=== PATIENT | male | born 1975 | race Caucasian/White ===

== ENCOUNTER 2020-02-09 08:50 | Inpatient (IN) ==
[2020-02-09] MEDS ORDERED: methylPREDNISolone SOD SUCC 125 MG/2 ML VIAL IV ONE (09:15)
[2020-02-09] MEDS ORDERED: ALBUTEROL SULFATE 200 PUFF INHALER INH ONE (09:15)
[2020-02-09] MEDS ORDERED: 0.9 % SODIUM CHLORIDE 2,000 ML IV ONE (09:15)
[2020-02-09] MEDS ORDERED: ONDANSETRON 4 MG/2 ML VIAL IV ONE (09:20)
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
[2020-02-09 09:50] LABS: POC Blood Urea Nitrogen 19 mg/dL (6-20); POC CO2 28 mmol/L (22-30); POC Calcium, Ionized 1.02 mmEq/L (1.16-1.32); POC Chloride 99 mEq/L (96-108); POC Creatinine 1.1 mg/dL (0.6-1.2); POC Glucose, Random 148 mg/dL (70-105); POC Hematocrit 42 % (41-55); POC Potassium 3.7 mEql/L (3.3-5.1); POC Sodium 137 mEq/L (133-145)
[2020-02-09 10:03] LABS: Basophils # (Auto) 0.01 K/mcL (0.00-0.20); Basophils % (Auto) 0.1 % (0.0-2.0); Eosinophils # (Auto) 0 K/mcL (0.00-0.70); Eosinophils % (Auto) 0 % (0.0-7.0); Hematocrit 43.1 % (41.0-55.0); Hemoglobin 14.5 g/dL (13.5-16.5); Lymphocytes # (Auto) 0.83 K/mcL (1.50-4.80); Lymphocytes % (Auto) 10.5 % (15.0-49.0); Mean Cell Volume 87.2 fL (80.0-100.0); Mean Corpuscular HGB Conc 33.6 g/dL (31.0-36.0); Mean Platelet Volume 9.3 fL (7.4-10.4); Monocytes % (Auto) 2.5 % (1.0-12.0); Neutrophils % (Auto) 86.9 % (38.0-78.0); Platelet Count 161 K/mcL (140-440); RBC 4.94 M/mcL (4.50-5.90); Red Cell Distribution Width 12.2 % (11.5-14.5); WBC 7.9 K/mcL (4.5-11.0)
--- NOTE | 2020-02-09 10:13 | XRay Report ---
HISTORY: Or breath, patient's has Covid infection FINDINGS: There are mild generalized alveolar infiltrates throughout both lungs. Lung volumes are normal. There is no lobar consolidation or pleural effusion. The heart size is normal. IMPRESSION: Mild bilateral pneumonia Interpreted and Authenticated by: Gilbert Deluna 02/09/20
[2020-02-09] MEDS ORDERED: REMDESIVIR 200 MG in 0.9 % SODIUM CHLORIDE 250 ML IV ONE ×2 (11:10→11:34)
[2020-02-09] MEDS ORDERED: REMDESIVIR 100 MG in 0.9 % SODIUM CHLORIDE 250 ML IV SCH (11:15)
[2020-02-09] MEDS ORDERED: ACETAMINOPHEN 650 MG/65 ML BOTTLE IV PRN (12:17)
[2020-02-09] MEDS ORDERED: METOPROLOL TARTRATE 5 MG/5 ML VIAL IV PRN (12:17)
[2020-02-09] MEDS ORDERED: POTASSIUM CHLORIDE 20 MEQ PACKET PO PRN (12:17)
[2020-02-09] MEDS ORDERED: CALCIUM CHLORIDE 1,000 MG/10 ML SYRINGE IV PRN (12:17)
[2020-02-09] MEDS ORDERED: POLYETHYLENE GLYCOL 3350 17 GM PACKET PO PRN (12:17)
[2020-02-09] MEDS ORDERED: AZITHROMYCIN 500 MG in DEXTROSE 5% IN WATER 250 ML IV SCH (12:17)
[2020-02-09] MEDS ORDERED: POTASSIUM CHLORIDE 40 MEQ in DEXTROSE 5% IN WATER 500 ML IV PRN (12:17)
[2020-02-09] MEDS ORDERED: ONDANSETRON 4 MG/2 ML VIAL IV PRN (12:17)
[2020-02-09] MEDS ORDERED: BISACODYL 10 MG SUPP.RECT PR PRN (12:17)
[2020-02-09] MEDS ORDERED: MAGNESIUM SULFATE 2 GM/50 ML BAG IV PRN (12:17)
[2020-02-09] MEDS ORDERED: ONDANSETRON 4 MG ODT TABLET SL PRN (12:17)
[2020-02-09] MEDS: cefTRIAXone 2 GM in DEXTROSE 5% IN WATER 50 ML IV SCH (13:44)
[2020-02-09] MEDS: buPROPion 150 MG TAB.XL.24H PO SCH (13:46)
[2020-02-09] MEDS: 0.9 % SODIUM CHLORIDE 10 ML SYRINGE IV SCH ×2 (14:07→20:30)
[2020-02-09] MEDS: AZITHROMYCIN 500 MG in DEXTROSE 5% IN WATER 250 ML IV SCH (14:37)
[2020-02-09] MEDS: 0.9 % SODIUM CHLORIDE 1,000 ML IV SCH (14:39)
[2020-02-09] MEDS: RIVAROXABAN 20 MG TABLET PO SCH (17:23)
[2020-02-09] MEDS: BUDESONIDE 1 PUFF INHALER INH SCH (19:53)
[2020-02-09] MEDS: SENNOSIDES/DOCUSATE SODIUM 1 TAB TABLET PO SCH (20:04)
[2020-02-09] MEDS: DOCUSATE SODIUM 100 MG CAPSULE PO SCH (20:04)
[2020-02-09] MEDS: LORazepam 0.5 MG TABLET PO PRN (22:49)
[2020-02-09] MEDS ORDERED: LORazepam 0.5 MG TABLET ONE (22:55)
[2020-02-09] MEDS: ACETAMINOPHEN 325 MG TABLET PO PRN (23:47)
[2020-02-10] MEDS: 0.9 % SODIUM CHLORIDE 10 ML SYRINGE IV SCH ×3 (05:05→22:00)
[2020-02-10 06:45] LABS: Basophils # (Auto) 0.01 K/mcL (0.00-0.20); Basophils % (Auto) 0.1 % (0.0-2.0); Eosinophils # (Auto) 0 K/mcL (0.00-0.70); Eosinophils % (Auto) 0 % (0.0-7.0); Hemoglobin 13.1 g/dL (13.5-16.5); Lymphocytes # (Auto) 0.93 K/mcL (1.50-4.80); Lymphocytes % (Auto) 11.1 % (15.0-49.0); Mean Cell Volume 88.5 fL (80.0-100.0); Mean Corpuscular HGB Conc 32.8 g/dL (31.0-36.0); Mean Platelet Volume 9.7 fL (7.4-10.4); Monocytes # (Auto) 0.45 K/mcL (0.10-0.90); Monocytes % (Auto) 5.4 % (1.0-12.0); Neutrophils % (Auto) 83.4 % (38.0-78.0); Platelet Count 198 K/mcL (140-440); RBC 4.52 M/mcL (4.50-5.90); Red Cell Distribution Width 12.1 % (11.5-14.5); WBC 8.4 K/mcL (4.5-11.0)
[2020-02-10 07:13] LABS: ALT/SGPT 39 U/L (<40); AST/SGOT 38 U/L (<40); Albumin 3.2 gm/dL (3.2-5.2); Albumin/Globulin Ratio 1.1 (1.0-2.3); Alkaline Phosphatase 55 U/L (39-117); Bilirubin,Direct < 0.2 mg/dL (<0.3); Bilirubin,Total 0.2 mg/dL (0.1-1.0); Blood Urea Nitrogen 13 mg/dL (6-20); Calcium 8.4 mg/dL (8.6-10.4); Carbon Dioxide 26 mmol/L (22-30); Chloride 103 mmol/L (96-108); Globulin 2.9 gm/dL (2.2-3.7); Glomerular Filtration Rate 110; Glucose 135 mg/dL (70-105); Lactate Dehydrogenase 444 U/L (135-225); Phosphorous 3.3 mg/dL (2.5-4.5); Triglycerides 83 mg/dL (<150); Uric Acid 3.7 mg/dL (2.5-8.0)
[2020-02-10 07:23] LABS: Ferritin 817.7 ng/mL (30.0-400.0)
[2020-02-10] MEDS: buPROPion 150 MG TAB.XL.24H PO SCH (08:15)
[2020-02-10] MEDS: DOCUSATE SODIUM 100 MG CAPSULE PO SCH ×3 (08:15→20:56)
[2020-02-10] MEDS: DEXAMETHASONE 4 MG TABLET PO SCH (08:15)
[2020-02-10] MEDS: MULTIVIT,THER IRON,CA,FA & MIN 1 TABLET PO SCH (08:15)
[2020-02-10] MEDS: cefTRIAXone 2 GM in DEXTROSE 5% IN WATER 50 ML IV SCH (08:16)
[2020-02-10] MEDS: TIOTROPIUM BROMIDE 18 MCG INHALANT INH SCH (08:16)
[2020-02-10] MEDS: BUDESONIDE 1 PUFF INHALER INH SCH ×2 (08:17→21:00)
[2020-02-10] MEDS ORDERED: DEXAMETHASONE 4 MG TABLET PO SCH (09:00)
[2020-02-10] MEDS: LORazepam 0.5 MG TABLET PO PRN ×3 (09:01→19:51)
[2020-02-10] MEDS: AZITHROMYCIN 500 MG in DEXTROSE 5% IN WATER 250 ML IV SCH (10:48)
[2020-02-10] MEDS: 0.9 % SODIUM CHLORIDE 1,000 ML IV SCH (10:48)
[2020-02-10] MEDS ORDERED: REMDESIVIR 100 MG in 0.9 % SODIUM CHLORIDE 250 ML IV SCH (11:15)
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
--- NOTE | 2020-02-10 11:26 | Internal Med Progress Note ---
SUBJECTIVE Subjective Patient information: Note initiated : 02/10/20 at 11:22 am Service Date, if different from initiated Date: [] Patient: Gerry Myers a 44 y/o M admitted on 02/09/20 for shortness of breath, covid positive. Chief Complaint: History of present illness: Mr. Myers is a 44 year old M with a history of DVT/PE with long-term anticoagulant use/anxiety disorder who presents to the ER with over a week onset of worsening upper respiratory symptoms that started with cough/weakness malaise and fever that has progressed with increasing difficulty breathing along with loss of appetite/generalized body ache and malaise. He presents to the ER with concerns of Covid. Initial work-up was consistent with bilateral pneumonia/severe hypoxic respiratory failure requiring 4 L oxygen in the ER. Patient was started on dexamethasone/remdesivir along with antibiotic coverage. Subsequently hospitalist service was consulted. At the time of my evaluation patient is extremely anxious. Unable to talk in full sentences. Tachycardic at 115/tachypneic at 40. Review of blood gas and chest imaging was consistent with Covid acute viral syndrome and pneumonia pattern. Patient was able to endorse history as above. Denies dysuria, rash, joint swelling or pain 02/09-patient currently on noninvasive mechanical ventilation due to worsening ABGs. pH 7.4 8/35/57 on 10 L oxygen. Overnight continue to deteriorate. On remdesivir/dexamethasone day 2. Maintain COVID-19 questions. White count 8.4/D-dimer 0.52/ferritin 817/CRP 10.2. [place] 2 score 17. Very high risk mortality. Continue ICU care/noninvasive mechanical ventilation. Low threshold for transfer to tertiary center if continues to deteriorate despite aggressive treatment. Constitutional Vitals: Vital Signs Temp Pulse Resp BP Pulse Ox 97.9 F 77 22 133/77 97 02/10/20 08:01 02/10/20 11:08 02/10/20 11:08 02/10/20 10:01 02/10/20 11:08 Period Temp Pulse Resp BP Sys/Sandoval Pulse Ox Last 24 Hr 97.4 F-102.0 F 71-107 16-34 118-146/75-107 88-97 Intake and Output 02/09/20 02/10/20 02/10/20 21:59 05:59 13:59 Intake Total 135 512 2756 Output Total 700 550 Balance -400 960 500 Weight 120.837 kg very anxious Labored breathing on 10 L oxygen transition to noninvasive mechanical ventilation No lymphedema Nondistended abdomen Intake & Output: Intake & Output 02/09/20 02/10/20 02/10/20 21:59 05:59 13:59 Intake Total 597 179 1020 Output Total 700 550 Balance -400 960 500 Weight 120.837 kg Intake: IV 300 1050 Sodium Chloride 0.9% 1,000 ml @ 1000 50 mls/hr IV .Q20H [facility] Rx#: [id number] Zithromax 500 mg In Dextrose 5% 250 in Water 250 ml @ 250 mls/hr IV Q24H [facility] Rx#:[id number] Rocephin 2 gm In Dextrose 5% in 50 50 Water 50 ml @ 100 mls/hr IV Q24H [facility] Rx#:[id number] Oral 960 Output: Void Amount 700 550 Other: Urine Appearance Clear Urine Color Bright Yellow Straw Urine Odor Normal OBJ DATA Labs CBC & Chem 7: 02/10/20 05:18 02/10/20 05:18 Labs: Abnormal Lab Results 02/10/20 02/10/20 02/10/20 05:18 05:18 05:18 Hgb 13.1 L Hct 40.0 L Neut % (Auto) 83.4 H Lymph % (Auto) 11.1 L Lymph # (Auto) 0.93 L D-Dimer 0.52 H Glucose 135 H POC Glucose Calcium 8.4 L POC WB Ioniz Calcium Ferritin 817.7 H GGT 82 H Lactate Dehydrogenase 444 H C-Reactive Protein 10.20 H Procalcitonin 02/10/20 02/09/20 02/09/20 05:18 09:29 09:29 Hgb Hct Neut % (Auto) Lymph % (Auto) Lymph # (Auto) D-Dimer Glucose POC Glucose 148 H Calcium POC WB Ioniz Calcium 1.02 L Ferritin GGT Lactate Dehydrogenase C-Reactive Protein Procalcitonin 0.45 H 0.59 H 02/09/20 09:29 Hgb Hct Neut % (Auto) 86.9 H Lymph % (Auto) 10.5 L Lymph # (Auto) 0.83 L D-Dimer Glucose POC Glucose Calcium POC WB Ioniz Calcium Ferritin GGT Lactate Dehydrogenase C-Reactive Protein Procalcitonin Meds: Medications Acetaminophen (Tylenol) 650 mg PO Q4-6HP PRN; Protocol PRN Reason: Per Pain Protocol/Fever > 101 Last Admin: 02/09/20 23:47 Dose: 650 mg Documented by: Bisacodyl (Dulcolax) 10 mg ID Q2-3DAYS PRN PRN Reason: Constipation Budesonide (Pulmicort) 2 puff INH BID [facility] Last Admin: 02/10/20 08:17 Dose: Not Given Documented by: Bupropion HCl (Wellbutrin Xl) 300 mg PO DAILY [facility] Last Admin: 02/10/20 08:15 Dose: 300 mg Documented by: Calcium Chloride (Calcium Chloride) 1,000 mg IV ONCE PRN PRN Reason: CA+ = or < 7.8 Stop: 02/10/20 12:00 Dexamethasone (Decadron) 6 mg PO DAILY [facility] Last Admin: 02/10/20 08:15 Dose: 6 mg Documented by: Docusate Sodium (Colace) 100 mg PO BID [facility] Last Admin: 02/10/20 09:02 Dose: Not Given Documented by: Potassium Chloride 40 meq/ (Dextrose) 520 mls @ 130 mls/hr IV UD PRN PRN Reason: K+ = or < 3.5 Acetaminophen (Ofirmev) 650 mg in 65 mls @ 130 mls/hr IV Q6HP PRN; Protocol PRN Reason: Per Pain Protocol/Fever > 101 Magnesium Sulfate (Magnesium Sulfate) 2 gm in 50 mls @ 50 mls/hr IV UD PRN PRN Reason: MG = or < 1.7 Sodium Chloride (Sodium Chloride 0.9%) 1,000 mls @ 50 mls/hr IV .Q20H [facility] Stop: 02/12/20 00:16 Last Admin: 02/10/20 10:48 Dose: 50 mls/hr Documented by: Ceftriaxone Sodium 2 gm/ (Dextrose) 50 mls @ 100 mls/hr IV Q24H [facility]; Protocol Last Infusion: 02/10/20 08:50 Dose: Infused Documented by: REMDESIVIR 100 mg/ Sodium (Chloride) 250 mls @ 250 mls/hr IV Q24H [facility] Stop: 02/13/20 11:59 Azithromycin 500 mg/ Dextrose 250 mls @ 250 mls/hr IV Q24H [facility]; Protocol Stop: 02/11/20 15:59 Last Admin: 02/10/20 10:48 Dose: 250 mls/hr Documented by: Iron Carb/Multivit/[place]/Folic Acid (Multivitamin W/Minerals) 1 tab PO DAILY [facility] Last Admin: 02/10/20 08:15 Dose: 1 tab Documented by: Lorazepam (Ativan) 0.5 mg PO Q4HP PRN PRN Reason: ANXIETY/SEDATION Last Admin: 02/10/20 09:01 Dose: 0.5 mg Documented by: Melatonin (Melatonin 3mg Tablet) 3 mg PO HSP PRN PRN Reason: Insomnia Metoprolol Tartrate (Lopressor) 5 mg IV Q5M PRN PRN Reason: Heart Rate > 140 bpm Ondansetron HCl (Zofran Odt) 4 mg SL Q4-6HP PRN; Protocol PRN Reason: Nausea And Vomiting Ondansetron HCl (Zofran) 4 mg IV Q4-6HP PRN; Protocol PRN Reason: Nausea And Vomiting Last Admin: 02/09/20 20:03 Dose: 4 mg Documented by: Polyethylene Glycol (Miralax) 17 gm PO DAILYP PRN PRN Reason: Constipation Potassium Chloride (Klor-Con) 40 meq PO DAILYP PRN PRN Reason: K+ < 3.5 Rivaroxaban (Xarelto) 20 mg PO QPMCC [facility] Last Admin: 02/09/20 17:23 Dose: 20 mg Documented by: Senna/Docusate Sodium (Senna Plus Tablet) 1 tab PO HS [facility] Last Admin: 02/09/20 20:04 Dose: 1 tab Documented by: Sodium Chloride (Saline Flush) 10 ml IV Q8 [facility] Last Admin: 02/10/20 05:05 Dose: Not Given Documented by: Tiotropium [place] (Spiriva) 18 mcg INH DAILY [facility] Last Admin: 02/10/20 08:16 Dose: 1 puff Documented by: A/P Narrative A/P Narrative: * COVID-19 pneumonia-clinical deterioration noted. Continue noninvasive mechanical ventilation. On 55% FiO2, continue day 2 remdesivir/dexamethasone, thrombosis prophylaxis/stable coag inflammatory markers, maintain COVID-19 precautions * Acute hypoxic respiratory failure secondary to Covid pneumonia. Worsening now requiring noninvasive mechanical ventilation. Follow with serial chest imaging/blood gas and vent titration * History of DVT on anticoagulation * Anxiety disorder continue bupropion/as needed benzodiazepine * Full code Plan * Continue noninvasive mechanical ventilation * Serial imaging/ABG/follow coag inflammatory markers * Continue remdesivir/dexamethasone/empiric antibiotics/thrombosis prophylaxis * Pre-existing medical condition management home meds * Continue directed therapies/nutrition support/early mobilization * Transfer to tertiary center if worsening Critical care time spent on management of hypoxic respiratory failure/noninvasive mechanical ventilation/review of blood gas imaging and labs in excess of 35 minutes Time Spent With Patient Time: Total time spent is greater than 50% in coordination of care (as documented) at patient's floor/unit and/or counseling patient:
[2020-02-10] MEDS: REMDESIVIR 100 MG in 0.9 % SODIUM CHLORIDE 250 ML IV SCH (11:55)
[2020-02-10] MEDS: RIVAROXABAN 20 MG TABLET PO SCH (17:08)
[2020-02-10] MEDS: ACETAMINOPHEN 325 MG TABLET PO PRN (20:56)
[2020-02-10] MEDS: MELATONIN 3 MG TABLET PO PRN (20:56)
[2020-02-10] MEDS: SENNOSIDES/DOCUSATE SODIUM 1 TAB TABLET PO SCH (20:56)
[2020-02-11] MEDS: ACETAMINOPHEN 325 MG TABLET PO PRN ×3 (05:40→17:14)
[2020-02-11] MEDS: LORazepam 0.5 MG TABLET PO PRN ×3 (05:40→17:14)
[2020-02-11] MEDS: 0.9 % SODIUM CHLORIDE 10 ML SYRINGE IV SCH ×3 (06:03→21:40)
[2020-02-11 06:59] LABS: Basophils # (Auto) 0.01 K/mcL (0.00-0.20); Basophils % (Auto) 0.1 % (0.0-2.0); Eosinophils # (Auto) 0 K/mcL (0.00-0.70); Eosinophils % (Auto) 0 % (0.0-7.0); Hematocrit 41.3 % (41.0-55.0); Hemoglobin 13.4 g/dL (13.5-16.5); Lymphocytes # (Auto) 1.08 K/mcL (1.50-4.80); Mean Cell Volume 89.8 fL (80.0-100.0); Mean Corpuscular HGB Conc 32.4 g/dL (31.0-36.0); Mean Platelet Volume 9.9 fL (7.4-10.4); Monocytes % (Auto) 5.6 % (1.0-12.0); Neutrophils % (Auto) 84.3 % (38.0-78.0); Platelet Count 224 K/mcL (140-440); Red Cell Distribution Width 12.2 % (11.5-14.5); WBC 10.8 K/mcL (4.5-11.0)
[2020-02-11] MEDS: 0.9 % SODIUM CHLORIDE 1,000 ML IV SCH (08:01)
[2020-02-11 08:32] LABS: ALT/SGPT 76 U/L (<40); AST/SGOT 64 U/L (<40); Albumin 3.1 gm/dL (3.2-5.2); Albumin/Globulin Ratio 1.1 (1.0-2.3); Alkaline Phosphatase 52 U/L (39-117); Bilirubin,Direct < 0.2 mg/dL (<0.3); Bilirubin,Total 0.2 mg/dL (0.1-1.0); Blood Urea Nitrogen 19 mg/dL (6-20); Calcium 8.7 mg/dL (8.6-10.4); Carbon Dioxide 25 mmol/L (22-30); Chloride 105 mmol/L (96-108); Globulin 2.8 gm/dL (2.2-3.7); Glomerular Filtration Rate 110; Glucose 129 mg/dL (70-105); Lactate Dehydrogenase 454 U/L (135-225); Phosphorous 3.8 mg/dL (2.5-4.5); Triglycerides 104 mg/dL (<150); Uric Acid 4.3 mg/dL (2.5-8.0)
--- NOTE | 2020-02-11 08:54 | XRay Report ---
HISTORY: Follow-up Covid pneumonia FINDINGS: Moderate bilateral pneumonia is present throughout both lungs. There is a thick band of discoid atelectasis developing along the left upper heart border. The pneumonia has become worse since 02/09/20. No pleural effusion is present. The heart size remains normal. IMPRESSION: Worsening bilateral pneumonia Interpreted and Authenticated by: Gilbert Deluna 02/11/20
[2020-02-11] MEDS: BUDESONIDE 1 PUFF INHALER INH SCH (09:23)
[2020-02-11] MEDS: DOCUSATE SODIUM 100 MG CAPSULE PO SCH ×2 (10:18→21:40)
[2020-02-11] MEDS: DEXAMETHASONE 4 MG TABLET PO SCH (10:27)
[2020-02-11] MEDS: cefTRIAXone 2 GM in DEXTROSE 5% IN WATER 50 ML IV SCH (10:27)
[2020-02-11] MEDS: MULTIVIT,THER IRON,CA,FA & MIN 1 TABLET PO SCH (10:28)
[2020-02-11] MEDS: TIOTROPIUM BROMIDE 18 MCG INHALANT INH SCH (10:28)
[2020-02-11] MEDS: buPROPion 150 MG TAB.XL.24H PO SCH (10:29)
[2020-02-11] MEDS: AZITHROMYCIN 500 MG in DEXTROSE 5% IN WATER 250 ML IV SCH (11:19)
[2020-02-11] MEDS: REMDESIVIR 100 MG in 0.9 % SODIUM CHLORIDE 250 ML IV SCH (12:42)
--- NOTE | 2020-02-11 13:08 | Internal Med Progress Note ---
SUBJECTIVE Subjective Patient information: Note initiated : 02/11/20 at 1:05 pm Service Date, if different from initiated Date: [] Patient: Gerry Myers a 44 y/o M admitted on 02/09/20 for shortness of breath, covid positive. Interval history: History of present illness: Mr. Myers is a 44 year old M with a history of DVT/PE with long-term anticoagulant use/anxiety disorder who presents to the ER with over a week onset of worsening upper respiratory symptoms that started with cough/weakness malaise and fever that has progressed with increasing difficulty breathing along with loss of appetite/generalized body ache and malaise. He presents to the ER with concerns of Covid. Initial work-up was consistent with bilateral pneumonia/severe hypoxic respiratory failure requiring 4 L oxygen in the ER. Patient was started on dexamethasone/remdesivir along with antibiotic coverage. Subsequently hospitalist service was consulted. At the time of my evaluation patient is extremely anxious. Unable to talk in full sentences. Tachycardic at 115/tachypneic at 40. Review of blood gas and chest imaging was consistent with Covid acute viral syndrome and pneumonia pattern. Patient was able to endorse history as above. Denies dysuria, rash, joint swelling or pain 02/09-patient currently on noninvasive mechanical ventilation due to worsening ABGs. pH 7.4 8/35/57 on 10 L oxygen. Overnight continue to deteriorate. On remdesivir/dexamethasone day 2. Maintain COVID-19 questions. White count 8.4/D-dimer 0.52/ferritin 817/CRP 10.2. [place] 2 score 17. Very high risk mortality. Continue ICU care/noninvasive mechanical ventilation. Low threshold for transfer to tertiary center if continues to deteriorate despite aggressive treatment. 02/10-patient clinically improving now on 45% FiO2 noninvasive ventilation. Breathing a lot better. Hemodynamic stabilizing. Tachycardia and tachypnea improved. Interval chest imaging worsening bilateral chest infiltrates. Improved anxiety. Continue remdesivir/dexamethasone. White count 10.8 Constitutional Vitals: Vital Signs Temp Pulse Resp BP Pulse Ox 97.6 F 85 24 H 139/86 98 02/11/20 08:00 02/11/20 11:01 02/11/20 11:01 02/11/20 10:00 02/11/20 11:01 Period Temp Pulse Resp BP Sys/Sandoval Pulse Ox Last 24 Hr 97.6 F-98.2 F 65-101 17-32 118-143/79-99 90-100 Intake and Output 02/10/20 02/11/20 02/11/20 21:59 05:59 13:59 Intake Total 014 628 1266 Output Total 600 400 Balance -240 -300 1420 Weight 123.014 kg anxious but improved since previous day Minimally labored breathing on noninvasive ventilation 45% FiO2 No lymphedema No telemetry events Intake & Output: Intake & Output 02/10/20 02/11/20 02/11/20 21:59 05:59 13:59 Intake Total 327 024 7976 Output Total 600 400 Balance -240 -300 1420 Weight 123.014 kg Intake: IV 1000 Sodium Chloride 0.9% 1,000 ml @ 1000 50 mls/hr IV .Q20H [facility] Rx#: [id number] Oral 360 100 420 Output: Void Amount 600 400 Other: Meal Dinner Breakfast Percent of Meal Consumed 50% 100% Urine Appearance Cloudy Clear Urine Color Light Alexa Dark Yellow Stool Size Moderate Stool Color Brown Stool Consistency Formed # Voids 1 OBJ DATA Labs CBC & Chem 7: 02/11/20 05:22 02/11/20 05:22 Labs: Abnormal Lab Results 02/11/20 02/11/20 02/11/20 05:22 05:22 05:22 Hgb 13.4 L Hct Neut % (Auto) 84.3 H Lymph % (Auto) 10.0 L Lymph # (Auto) 1.08 L Absolute Neutrophils 9.07 H D-Dimer Glucose 129 H POC Glucose Calcium POC WB Ioniz Calcium Ferritin GGT 78 H AST 64 H ALT 76 H Lactate Dehydrogenase 454 H C-Reactive Protein Albumin 3.1 L Procalcitonin 0.27 H 02/10/20 02/10/20 02/10/20 05:18 05:18 05:18 Hgb 13.1 L Hct 40.0 L Neut % (Auto) 83.4 H Lymph % (Auto) 11.1 L Lymph # (Auto) 0.93 L Absolute Neutrophils D-Dimer 0.52 H Glucose 135 H POC Glucose Calcium 8.4 L POC WB Ioniz Calcium Ferritin 817.7 H GGT 82 H AST ALT Lactate Dehydrogenase 444 H C-Reactive Protein 10.20 H Albumin Procalcitonin 02/10/20 02/09/20 02/09/20 05:18 09:29 09:29 Hgb Hct Neut % (Auto) Lymph % (Auto) Lymph # (Auto) Absolute Neutrophils D-Dimer Glucose POC Glucose 148 H Calcium POC WB Ioniz Calcium 1.02 L Ferritin GGT AST ALT Lactate Dehydrogenase C-Reactive Protein Albumin Procalcitonin 0.45 H 0.59 H 02/09/20 09:29 Hgb Hct Neut % (Auto) 86.9 H Lymph % (Auto) 10.5 L Lymph # (Auto) 0.83 L Absolute Neutrophils D-Dimer Glucose POC Glucose Calcium POC WB Ioniz Calcium Ferritin GGT AST ALT Lactate Dehydrogenase C-Reactive Protein Albumin Procalcitonin Meds: Medications Acetaminophen (Tylenol) 650 mg PO Q4-6HP PRN; Protocol PRN Reason: Per Pain Protocol/Fever > 101 Last Admin: 02/11/20 10:28 Dose: 650 mg Documented by: Bisacodyl (Dulcolax) 10 mg [place] Q2-3DAYS PRN PRN Reason: Constipation Budesonide (Pulmicort) 2 puff INH BID [facility] Last Admin: 02/11/20 09:23 Dose: Not Given Documented by: Bupropion HCl (Wellbutrin Xl) 300 mg PO DAILY [facility] Last Admin: 02/11/20 10:29 Dose: 300 mg Documented by: Dexamethasone (Decadron) 6 mg PO DAILY [facility] Last Admin: 02/11/20 10:27 Dose: 6 mg Documented by: Docusate Sodium (Colace) 100 mg PO BID [facility] Last Admin: 02/11/20 10:18 Dose: Not Given Documented by: Potassium Chloride 40 meq/ (Dextrose) 520 mls @ 130 mls/hr IV UD PRN PRN Reason: K+ = or < 3.5 Acetaminophen (Ofirmev) 650 mg in 65 mls @ 130 mls/hr IV Q6HP PRN; Protocol PRN Reason: Per Pain Protocol/Fever > 101 Magnesium Sulfate (Magnesium Sulfate) 2 gm in 50 mls @ 50 mls/hr IV UD PRN PRN Reason: MG = or < 1.7 Sodium Chloride (Sodium Chloride 0.9%) 1,000 mls @ 50 mls/hr IV .Q20H [facility] Stop: 02/12/20 00:16 Last Admin: 02/11/20 08:01 Dose: 50 mls/hr Documented by: Ceftriaxone Sodium 2 gm/ (Dextrose) 50 mls @ 100 mls/hr IV Q24H [facility]; Protocol Last Admin: 02/11/20 10:27 Dose: 100 mls/hr Documented by: REMDESIVIR 100 mg/ Sodium (Chloride) 250 mls @ 250 mls/hr IV Q24H [facility] Stop: 02/13/20 11:59 Last Admin: 02/11/20 12:42 Dose: 250 mls/hr Documented by: Azithromycin 500 mg/ Dextrose 250 mls @ 250 mls/hr IV Q24H [facility]; Protocol Stop: 02/11/20 15:59 Last Admin: 02/11/20 11:19 Dose: 250 mls/hr Documented by: Iron Carb/Multivit/[place]/Folic Acid (Multivitamin W/Minerals) 1 tab PO DAILY [facility] Last Admin: 02/11/20 10:28 Dose: 1 tab Documented by: Lorazepam (Ativan) 0.5 mg PO Q4HP PRN PRN Reason: ANXIETY/SEDATION Last Admin: 02/11/20 10:28 Dose: 0.5 mg Documented by: Melatonin (Melatonin 3mg Tablet) 3 mg PO HSP PRN PRN Reason: Insomnia Last Admin: 02/10/20 20:56 Dose: 3 mg Documented by: Metoprolol Tartrate (Lopressor) 5 mg IV Q5M PRN PRN Reason: Heart Rate > 140 bpm Ondansetron HCl (Zofran Odt) 4 mg SL Q4-6HP PRN; Protocol PRN Reason: Nausea And Vomiting Ondansetron HCl (Zofran) 4 mg IV Q4-6HP PRN; Protocol PRN Reason: Nausea And Vomiting Last Admin: 02/09/20 20:03 Dose: 4 mg Documented by: Polyethylene Glycol (Miralax) 17 gm PO DAILYP PRN PRN Reason: Constipation Potassium Chloride (Klor-Con) 40 meq PO DAILYP PRN PRN Reason: K+ < 3.5 Rivaroxaban (Xarelto) 20 mg PO QPMCC [facility] Last Admin: 02/10/20 17:08 Dose: 20 mg Documented by: Senna/Docusate Sodium (Senna Plus Tablet) 1 tab PO HS [facility] Last Admin: 02/10/20 20:56 Dose: 1 tab Documented by: Sodium Chloride (Saline Flush) 10 ml IV Q8 [facility] Last Admin: 02/11/20 12:42 Dose: Not Given Documented by: Tiotropium [place] (Spiriva) 18 mcg INH DAILY [facility] Last Admin: 02/11/20 10:28 Dose: 1 puff Documented by: A/P Narrative A/P Narrative: * COVID-19 pneumonia-clinically stabilizing. Now on 45% FiO2 noninvasive mechanical ventilation. ABG 7.4 . Continue day 3 remdesivir/dexamethasone, thrombosis prophylaxis/stable coag inflammatory markers, maintain COVID-19 precautions * Acute hypoxic respiratory failure secondary to Covid pneumonia. Worsening now requiring noninvasive mechanical ventilation. Follow with serial chest imaging/blood gas and vent titration * History of DVT on anticoagulation * Anxiety disorder stable on bupropion/as needed benzodiazepine * Full code Plan * Continue NIV and wean oxygen as tolerated. Currently at 45% FiO2 * Continue remdesivir/dexamethasone/empiric antibiotics/thrombosis prophylaxis * Pre-existing medical condition management home meds * Continue directed therapies/nutrition support/early mobilization Critical time spent in excess of 35 minutes on management of hypoxic respiratory failure/COVID-19 pneumonia Time Spent With Patient Time: Total time spent is greater than 50% in coordination of care (as documented) at patient's floor/unit and/or counseling patient:
[2020-02-11] MEDS: RIVAROXABAN 20 MG TABLET PO SCH (17:14)
[2020-02-11] MEDS: SENNOSIDES/DOCUSATE SODIUM 1 TAB TABLET PO SCH (21:40)
[2020-02-11] MEDS: MELATONIN 3 MG TABLET PO PRN (23:37)
[2020-02-12] MEDS: 0.9 % SODIUM CHLORIDE 10 ML SYRINGE IV SCH ×5 (01:00→20:50)
[2020-02-12] MEDS: DOCUSATE SODIUM 100 MG CAPSULE PO SCH ×2 (07:17→20:49)
[2020-02-12 07:19] LABS: Basophils # (Auto) 0.01 K/mcL (0.00-0.20); Basophils % (Auto) 0.1 % (0.0-2.0); Eosinophils # (Auto) 0 K/mcL (0.00-0.70); Eosinophils % (Auto) 0 % (0.0-7.0); Hematocrit 38.3 % (41.0-55.0); Hemoglobin 12.7 g/dL (13.5-16.5); Lymphocytes # (Auto) 1.18 K/mcL (1.50-4.80); Lymphocytes % (Auto) 16.3 % (15.0-49.0); Mean Cell Volume 87.6 fL (80.0-100.0); Mean Corpuscular HGB Conc 33.2 g/dL (31.0-36.0); Mean Platelet Volume 9.6 fL (7.4-10.4); Monocytes # (Auto) 0.62 K/mcL (0.10-0.90); Monocytes % (Auto) 8.6 % (1.0-12.0); Platelet Count 224 K/mcL (140-440); RBC 4.37 M/mcL (4.50-5.90); WBC 7.2 K/mcL (4.5-11.0)
[2020-02-12 08:31] LABS: ALT/SGPT 76 U/L (<40); AST/SGOT 40 U/L (<40); Albumin 3.1 gm/dL (3.2-5.2); Albumin/Globulin Ratio 1.1 (1.0-2.3); Alkaline Phosphatase 52 U/L (39-117); Bilirubin,Direct < 0.2 mg/dL (<0.3); Bilirubin,Total 0.2 mg/dL (0.1-1.0); Blood Urea Nitrogen 14 mg/dL (6-20); Calcium 8.5 mg/dL (8.6-10.4); Carbon Dioxide 25 mmol/L (22-30); Chloride 106 mmol/L (96-108); Globulin 2.7 gm/dL (2.2-3.7); Glomerular Filtration Rate 116; Glucose 91 mg/dL (70-105); Lactate Dehydrogenase 380 U/L (135-225); Phosphorous 3.9 mg/dL (2.5-4.5); Triglycerides 132 mg/dL (<150); Uric Acid 4.5 mg/dL (2.5-8.0)
[2020-02-12] MEDS ORDERED: FUROSEMIDE 20 MG/2 ML VIAL IV ONE (09:06)
[2020-02-12] MEDS: TIOTROPIUM BROMIDE 18 MCG INHALANT INH SCH (09:23)
[2020-02-12] MEDS: cefTRIAXone 2 GM in DEXTROSE 5% IN WATER 50 ML IV SCH (09:23)
[2020-02-12] MEDS: DEXAMETHASONE 4 MG TABLET PO SCH (09:30)
[2020-02-12] MEDS: MULTIVIT,THER IRON,CA,FA & MIN 1 TABLET PO SCH (09:30)
[2020-02-12] MEDS: ACETAMINOPHEN 325 MG TABLET PO PRN ×2 (09:30→20:48)
[2020-02-12] MEDS: LORazepam 0.5 MG TABLET PO PRN ×2 (09:30→20:48)
[2020-02-12] MEDS: buPROPion 150 MG TAB.XL.24H PO SCH ×2 (09:31→09:34)
--- NOTE | 2020-02-12 09:37 | Internal Med Progress Note ---
SUBJECTIVE Subjective Patient information: Note initiated : 02/12/20 at 9:35 am Service Date, if different from initiated Date: [] Patient: Gerry Myers a 44 y/o M admitted on 02/09/20 for shortness of breath, covid positive. Chief Complaint: [] Interval history: History of present illness: Mr. Myers is a 44 year old M with a history of DVT/PE with long-term anticoagulant use/anxiety disorder who presents to the ER with over a week onset of worsening upper respiratory symptoms that started with cough/weakness malaise and fever that has progressed with increasing difficulty breathing along with loss of appetite/generalized body ache and malaise. He presents to the ER with concerns of Covid. Initial work-up was consistent with bilateral pneumonia/severe hypoxic respiratory failure requiring 4 L oxygen in the ER. Patient was started on dexamethasone/remdesivir along with antibiotic coverage. Subsequently hospitalist service was consulted. At the time of my evaluation patient is extremely anxious. Unable to talk in full sentences. Tachycardic at 115/tachypneic at 40. Review of blood gas and chest imaging was consistent with Covid acute viral syndrome and pneumonia pattern. Patient was able to endorse history as above. Denies dysuria, rash, joint swelling or pain 02/09-patient currently on noninvasive mechanical ventilation due to worsening ABGs. pH 7.4 on 10 L oxygen. Overnight continue to deteriorate. On remdesivir/dexamethasone day 2. Maintain COVID-19 questions. White count 8.4/D-dimer 0.52/ferritin 817/CRP 10.2. [place] 2 score 17. Very high risk mortality. Continue ICU care/noninvasive mechanical ventilation. Low threshold for transfer to tertiary center if continues to deteriorate despite aggressive treatment. 02/10-patient clinically improving now on 45% FiO2 noninvasive ventilation. Breathing a lot better. Hemodynamic stabilizing. Tachycardia and tachypnea improved. Interval chest imaging worsening bilateral chest infiltrates. Improved anxiety. Continue remdesivir/dexamethasone. White count 10.8 02/11-patient seen in room. No overnight events. On CPAP at 35% FiO2. Clinical improvement noted. Continue weaning oxygen as tolerated. Continue remdesivir as/dexamethasone. On thrombosis prophylaxis. Good appetite. No overnight concerns per nursing staff. Improving oxygenation/acute lung injury. White count 7.2. LFTs stable, CRP 10.2, pro-Russ 0.14, improving blood gases. Constitutional Vitals: Vital Signs Temp Pulse Resp BP Pulse Ox 98.0 F 82 25 H 127/83 98 02/12/20 02:00 02/12/20 08:16 02/12/20 08:16 02/12/20 08:00 02/12/20 08:16 Period Temp Pulse Resp BP Sys/Sandoval Pulse Ox Last 24 Hr 97.2 F-98.9 F 62-94 17-31 112-139/65-93 93-100 Intake and Output 02/11/20 02/12/20 02/12/20 21:59 05:59 13:59 Intake Total 919 Output Total 1025 Balance -1025 919 Weight 123.604 kg Alert oriented Nonlabored breathing on CPAP 35% FiO2 Improved anxiety Minimal lymphedema/crackles Intake & Output: Intake & Output 02/11/20 02/12/20 02/12/20 21:59 05:59 13:59 Intake Total 919 Output Total 1025 Balance -1025 919 Weight 123.604 kg Intake: IV 799 Sodium Chloride 0.9% 1,000 ml @ 799 50 mls/hr IV .Q20H [facility] Rx#: [id number] Oral 120 Output: Urine/Stool Mix 1025 Other: Meal Dinner Percent of Meal Consumed 100% Feeding Ability Independent Stool Size Large Stool Color Brown Stool Consistency Loose OBJ DATA Labs CBC & Chem 7: 02/12/20 05:38 02/12/20 05:38 Labs: Abnormal Lab Results 02/12/20 02/12/20 02/12/20 05:38 05:38 05:38 RBC 4.37 L Hgb 12.7 L Hct 38.3 L Neut % (Auto) Lymph % (Auto) Lymph # (Auto) 1.18 L Absolute Neutrophils D-Dimer Glucose POC Glucose Calcium 8.5 L POC WB Ioniz Calcium Ferritin GGT 74 H AST 40 H ALT 76 H Lactate Dehydrogenase 380 H C-Reactive Protein Total Protein 5.8 L Albumin 3.1 L Procalcitonin 0.14 H SARS-CoV-2 (PCR) 02/11/20 02/11/20 02/11/20 05:22 05:22 05:22 RBC Hgb 13.4 L Hct Neut % (Auto) 84.3 H Lymph % (Auto) 10.0 L Lymph # (Auto) 1.08 L Absolute Neutrophils 9.07 H D-Dimer Glucose 129 H POC Glucose Calcium POC WB Ioniz Calcium Ferritin GGT 78 H AST 64 H ALT 76 H Lactate Dehydrogenase 454 H C-Reactive Protein Total Protein Albumin 3.1 L Procalcitonin 0.27 H SARS-CoV-2 (PCR) 02/10/20 02/10/20 02/10/20 05:18 05:18 05:18 RBC Hgb 13.1 L Hct 40.0 L Neut % (Auto) 83.4 H Lymph % (Auto) 11.1 L Lymph # (Auto) 0.93 L Absolute Neutrophils D-Dimer 0.52 H Glucose 135 H POC Glucose Calcium 8.4 L POC WB Ioniz Calcium Ferritin 817.7 H GGT 82 H AST ALT Lactate Dehydrogenase 444 H C-Reactive Protein 10.20 H Total Protein Albumin Procalcitonin SARS-CoV-2 (PCR) 02/10/20 02/09/20 02/09/20 05:18 11:18 09:29 RBC Hgb Hct Neut % (Auto) Lymph % (Auto) Lymph # (Auto) Absolute Neutrophils D-Dimer Glucose POC Glucose Calcium POC WB Ioniz Calcium Ferritin GGT AST ALT Lactate Dehydrogenase C-Reactive Protein Total Protein Albumin Procalcitonin 0.45 H 0.59 H SARS-CoV-2 (PCR) Detected A 02/09/20 02/09/20 09:29 09:29 RBC Hgb Hct Neut % (Auto) 86.9 H Lymph % (Auto) 10.5 L Lymph # (Auto) 0.83 L Absolute Neutrophils D-Dimer Glucose POC Glucose 148 H Calcium POC WB Ioniz Calcium 1.02 L Ferritin GGT AST ALT Lactate Dehydrogenase C-Reactive Protein Total Protein Albumin Procalcitonin SARS-CoV-2 (PCR) Meds: Medications Acetaminophen (Tylenol) 650 mg PO Q4-6HP PRN; Protocol PRN Reason: Per Pain Protocol/Fever > 101 Last Admin: 02/12/20 09:30 Dose: 650 mg Documented by: Bisacodyl (Dulcolax) 10 mg [place] Q2-3DAYS PRN PRN Reason: Constipation Bupropion HCl (Wellbutrin Xl) 300 mg PO DAILY [facility] Last Admin: 02/12/20 09:34 Dose: Not Given Documented by: Dexamethasone (Decadron) 6 mg PO DAILY [facility] Last Admin: 02/12/20 09:30 Dose: 6 mg Documented by: Docusate Sodium (Colace) 100 mg PO BID [facility] Last Admin: 02/12/20 07:17 Dose: Not Given Documented by: Potassium Chloride 40 meq/ (Dextrose) 520 mls @ 130 mls/hr IV UD PRN PRN Reason: K+ = or < 3.5 Acetaminophen (Ofirmev) 650 mg in 65 mls @ 130 mls/hr IV Q6HP PRN; Protocol PRN Reason: Per Pain Protocol/Fever > 101 Magnesium Sulfate (Magnesium Sulfate) 2 gm in 50 mls @ 50 mls/hr IV UD PRN PRN Reason: MG = or < 1.7 Ceftriaxone Sodium 2 gm/ (Dextrose) 50 mls @ 100 mls/hr IV Q24H [facility]; Protocol Last Admin: 02/12/20 09:23 Dose: 100 mls/hr Documented by: REMDESIVIR 100 mg/ Sodium (Chloride) 250 mls @ 250 mls/hr IV Q24H [facility] Stop: 02/13/20 11:59 Last Infusion: 02/11/20 13:45 Dose: Infused Documented by: Iron Carb/Multivit/[place]/Folic Acid (Multivitamin W/Minerals) 1 tab PO DAILY [facility] Last Admin: 02/12/20 09:30 Dose: 1 tab Documented by: Lorazepam (Ativan) 0.5 mg PO Q4HP PRN PRN Reason: ANXIETY/SEDATION Last Admin: 02/12/20 09:30 Dose: 0.5 mg Documented by: Melatonin (Melatonin 3mg Tablet) 3 mg PO HSP PRN PRN Reason: Insomnia Last Admin: 02/11/20 23:37 Dose: 3 mg Documented by: Metoprolol Tartrate (Lopressor) 5 mg IV Q5M PRN PRN Reason: Heart Rate > 140 bpm Ondansetron HCl (Zofran Odt) 4 mg SL Q4-6HP PRN; Protocol PRN Reason: Nausea And Vomiting Ondansetron HCl (Zofran) 4 mg IV Q4-6HP PRN; Protocol PRN Reason: Nausea And Vomiting Last Admin: 02/09/20 20:03 Dose: 4 mg Documented by: Polyethylene Glycol (Miralax) 17 gm PO DAILYP PRN PRN Reason: Constipation Potassium Chloride (Klor-Con) 40 meq PO DAILYP PRN PRN Reason: K+ < 3.5 Rivaroxaban (Xarelto) 20 mg PO QPMCC [facility] Last Admin: 02/11/20 17:14 Dose: 20 mg Documented by: Senna/Docusate Sodium (Senna Plus Tablet) 1 tab PO HS [facility] Last Admin: 02/11/20 21:40 Dose: Not Given Documented by: Sodium Chloride (Saline Flush) 10 ml IV Q8 [facility] Last Admin: 02/12/20 05:10 Dose: 10 ml Documented by: Tiotropium [place] (Spiriva) 18 mcg INH DAILY [facility] Last Admin: 02/12/20 09:23 Dose: 1 puff Documented by: A/P Narrative A/P Narrative: * COVID-19 pneumonia-clinically stabilizing. Continue day 4 remdesivir/dexamethasone, thrombosis prophylaxis, COVID-19 precautions * Acute lung injury acute hypoxic respiratory failure secondary to Covid pneumonia. Improving PaO2/FiO2 ratio. On 35% FiO2 noninvasive ventilation. Continue management based on ABG/imaging * History of DVT on anticoagulation * Anxiety disorder stable on bupropion/as needed benzodiazepine * Full code Plan * Continue NIV and wean oxygen as tolerated. * Serial ABGs/chest imaging * Continue remdesivir/dexamethasone * Single dose diuretic to improve lung compliance * Pre-existing medical condition management home meds * Continue directed therapies/nutrition support/early mobilization Critical time spent in excess of 35 minutes Time Spent With Patient Time: Total time spent is greater than 50% in coordination of care (as documented) at patient's floor/unit and/or counseling patient:
[2020-02-12] MEDS: REMDESIVIR 100 MG in 0.9 % SODIUM CHLORIDE 250 ML IV SCH (10:35)
--- NOTE | 2020-02-12 13:32 | Internal Med Progress Note ---
SUBJECTIVE Subjective Patient information: Note initiated : 02/12/20 at 1:28 pm Service Date, if different from initiated Date: [] Patient: Gerry Myers a 44 y/o M admitted on 02/09/20 for shortness of breath, covid positive. Chief Complaint: [] Interval history: History of present illness: Mr. Myers is a 44 year old M with a history of DVT/PE with long-term anticoagulant use/anxiety disorder who presents to the ER with over a week onset of worsening upper respiratory symptoms that started with cough/weakness malaise and fever that has progressed with increasing difficulty breathing along with loss of appetite/generalized body ache and malaise. He presents to the ER with concerns of Covid. Initial work-up was consistent with bilateral pneumonia/severe hypoxic respiratory failure requiring 4 L oxygen in the ER. Patient was started on dexamethasone/remdesivir along with antibiotic coverage. Subsequently hospitalist service was consulted. At the time of my evaluation patient is extremely anxious. Unable to talk in full sentences. Tachycardic at 115/tachypneic at 40. Review of blood gas and chest imaging was consistent with Covid acute viral syndrome and pneumonia pattern. Patient was able to endorse history as above. Denies dysuria, rash, joint swelling or pain 02/09-patient currently on noninvasive mechanical ventilation due to worsening ABGs. pH 7.4 / on 10 L oxygen. Overnight continue to deteriorate. On remdesivir/dexamethasone day 2. Maintain COVID-19 questions. White count 8.4/D-dimer 0.52/ferritin 817/CRP 10.2. [place] 2 score 17. Very high risk mortality. Continue ICU care/noninvasive mechanical ventilation. Low threshold for transfer to tertiary center if continues to deteriorate despite aggressive treatment. 02/10-patient clinically improving now on 45% FiO2 noninvasive ventilation. Breathing a lot better. Hemodynamic stabilizing. Tachycardia and tachypnea improved. Interval chest imaging worsening bilateral chest infiltrates. Improved anxiety. Continue remdesivir/dexamethasone. White count 10.8 02/11-patient seen in room. No overnight events. On CPAP at 35% FiO2. Clinical improvement noted. Continue weaning oxygen as tolerated. Continue remdesivir as/dexamethasone. On thrombosis prophylaxis. Good appetite. No overnight concerns per nursing staff. Improving oxygenation/acute lung injury. White count 7.2. LFTs stable, CRP 10.2, pro-Russ 0.14, improving blood gases. 02/12 Constitutional Vitals: Vital Signs Temp Pulse Resp BP Pulse Ox 98.0 F 71 22 128/79 94 02/12/20 02:00 02/12/20 12:01 02/12/20 12:01 02/12/20 12:01 02/12/20 12:01 Period Temp Pulse Resp BP Sys/Sandoval Pulse Ox Last 24 Hr 97.2 F-98.9 F 62-89 112-139/65-93 94-99 Intake and Output 02/11/20 02/12/20 02/12/20 21:59 05:59 13:59 Intake Total 919 1000 Output Total 1025 1250 Balance -1025 919 -250 Weight 123.604 kg Intake & Output: Intake & Output 02/11/20 02/12/20 02/12/20 21:59 05:59 13:59 Intake Total 919 1000 Output Total 1025 1250 Balance -1025 919 -250 Weight 123.604 kg Intake: IV 799 Sodium Chloride 0.9% 1,000 ml @ 799 50 mls/hr IV .Q20H [facility] Rx#: [id number] Oral 120 1000 Output: Void Amount 1250 Urine/Stool Mix 1025 Other: Meal Dinner Lunch Percent of Meal Consumed 100% 75% Feeding Ability Independent Independent Urine Appearance Clear Urine Color Pale Stool Size Large Moderate Stool Color Brown Brown Green Stool Consistency Loose Soft # Voids 1 Exam: General: Alert, Awake, No acute Distress Eyes/N/T: EOMI, Head/Neck: neck supple, normocephalic atraumatic CV: RRR, No murmurs, Pulm: b/l, no wheezing Abd: soft, nontender, +BS x4 Ext: no clubbing/cyanosis, b/l LE edema mild Neuro: Alert, no focal deficits, moves all extremities, Skin: warm/dry OBJ DATA Labs CBC & Chem 7: 02/12/20 05:38 02/12/20 05:38 Labs: Abnormal Lab Results 02/12/20 02/12/20 02/12/20 05:38 05:38 05:38 RBC 4.37 L Hgb 12.7 L Hct 38.3 L Neut % (Auto) Lymph % (Auto) Lymph # (Auto) 1.18 L Absolute Neutrophils D-Dimer Glucose Calcium 8.5 L Ferritin GGT 74 H AST 40 H ALT 76 H Lactate Dehydrogenase 380 H C-Reactive Protein Total Protein 5.8 L Albumin 3.1 L Procalcitonin 0.14 H SARS-CoV-2 (PCR) 02/11/20 02/11/20 02/11/20 05:22 05:22 05:22 RBC Hgb 13.4 L Hct Neut % (Auto) 84.3 H Lymph % (Auto) 10.0 L Lymph # (Auto) 1.08 L Absolute Neutrophils 9.07 H D-Dimer Glucose 129 H Calcium Ferritin GGT 78 H AST 64 H ALT 76 H Lactate Dehydrogenase 454 H C-Reactive Protein Total Protein Albumin 3.1 L Procalcitonin 0.27 H SARS-CoV-2 (PCR) 02/10/20 02/10/20 02/10/20 05:18 05:18 05:18 RBC Hgb 13.1 L Hct 40.0 L Neut % (Auto) 83.4 H Lymph % (Auto) 11.1 L Lymph # (Auto) 0.93 L Absolute Neutrophils D-Dimer 0.52 H Glucose 135 H Calcium 8.4 L Ferritin 817.7 H GGT 82 H AST ALT Lactate Dehydrogenase 444 H C-Reactive Protein 10.20 H Total Protein Albumin Procalcitonin SARS-CoV-2 (PCR) 02/10/20 02/09/20 05:18 11:18 RBC Hgb Hct Neut % (Auto) Lymph % (Auto) Lymph # (Auto) Absolute Neutrophils D-Dimer Glucose Calcium Ferritin GGT AST ALT Lactate Dehydrogenase C-Reactive Protein Total Protein Albumin Procalcitonin 0.45 H SARS-CoV-2 (PCR) Detected A Meds: Medications Acetaminophen (Tylenol) 650 mg PO Q4-6HP PRN; Protocol PRN Reason: Per Pain Protocol/Fever > 101 Last Admin: 02/12/20 09:30 Dose: 650 mg Documented by: Bisacodyl (Dulcolax) 10 mg UT Q2-3DAYS PRN PRN Reason: Constipation Bupropion HCl (Wellbutrin Xl) 300 mg PO DAILY [facility] Last Admin: 02/12/20 09:34 Dose: Not Given Documented by: Dexamethasone (Decadron) 6 mg PO DAILY [facility] Last Admin: 02/12/20 09:30 Dose: 6 mg Documented by: Docusate Sodium (Colace) 100 mg PO BID [facility] Last Admin: 02/12/20 07:17 Dose: Not Given Documented by: Potassium Chloride 40 meq/ (Dextrose) 520 mls @ 130 mls/hr IV UD PRN PRN Reason: K+ = or < 3.5 Acetaminophen (Ofirmev) 650 mg in 65 mls @ 130 mls/hr IV Q6HP PRN; Protocol PRN Reason: Per Pain Protocol/Fever > 101 Magnesium Sulfate (Magnesium Sulfate) 2 gm in 50 mls @ 50 mls/hr IV UD PRN PRN Reason: MG = or < 1.7 Ceftriaxone Sodium 2 gm/ (Dextrose) 50 mls @ 100 mls/hr IV Q24H [facility]; Protocol Last Admin: 02/12/20 09:23 Dose: 100 mls/hr Documented by: REMDESIVIR 100 mg/ Sodium (Chloride) 250 mls @ 250 mls/hr IV Q24H [facility] Stop: 02/13/20 11:59 Last Admin: 02/12/20 10:35 Dose: 250 mls/hr Documented by: Iron Carb/Multivit/[place]/Folic Acid (Multivitamin W/Minerals) 1 tab PO DAILY [facility] Last Admin: 02/12/20 09:30 Dose: 1 tab Documented by: Lorazepam (Ativan) 0.5 mg PO Q4HP PRN PRN Reason: ANXIETY/SEDATION Last Admin: 02/12/20 09:30 Dose: 0.5 mg Documented by: Melatonin (Melatonin 3mg Tablet) 3 mg PO HSP PRN PRN Reason: Insomnia Last Admin: 02/11/20 23:37 Dose: 3 mg Documented by: Metoprolol Tartrate (Lopressor) 5 mg IV Q5M PRN PRN Reason: Heart Rate > 140 bpm Ondansetron HCl (Zofran Odt) 4 mg SL Q4-6HP PRN; Protocol PRN Reason: Nausea And Vomiting Ondansetron HCl (Zofran) 4 mg IV Q4-6HP PRN; Protocol PRN Reason: Nausea And Vomiting Last Admin: 02/09/20 20:03 Dose: 4 mg Documented by: Polyethylene Glycol (Miralax) 17 gm PO DAILYP PRN PRN Reason: Constipation Potassium Chloride (Klor-Con) 40 meq PO DAILYP PRN PRN Reason: K+ < 3.5 Rivaroxaban (Xarelto) 20 mg PO QPMCC [facility] Last Admin: 02/11/20 17:14 Dose: 20 mg Documented by: Senna/Docusate Sodium (Senna Plus Tablet) 1 tab PO HS [facility] Last Admin: 02/11/20 21:40 Dose: Not Given Documented by: Sodium Chloride (Saline Flush) 10 ml IV Q8 [facility] Last Admin: 02/12/20 05:10 Dose: 10 ml Documented by: Tiotropium [place] (Spiriva) 18 mcg INH DAILY [facility] Last Admin: 02/12/20 09:23 Dose: 1 puff Documented by: A/P Narrative A/P Narrative: A: *COVID-19 PNA: *Acute lung injury / acute hypoxic respiratory failure: 2/2 above -Improving PaO2/FiO2 ratio -On 35% FiO2 noninvasive ventilation *h/o DVT: on anticoagulation *Anxiety disorder: stable on bupropion/as needed benzodiazepine *Obesity: Plan: -Continue NIV and wean oxygen as tolerated. -Serial ABGs/chest imaging -Continue remdesivir/dexamethasone -Single dose diuretic to improve lung compliance -Continue directed therapies/nutrition support/early mobilization -ppx: home xaralto Full code Time Spent With Patient Time: Total time spent is greater than 50% in coordination of care (as documented) at patient's floor/unit and/or counseling patient:
[2020-02-12] MEDS: RIVAROXABAN 20 MG TABLET PO SCH (17:21)
[2020-02-12] MEDS: MELATONIN 3 MG TABLET PO PRN (20:48)
[2020-02-12] MEDS: SENNOSIDES/DOCUSATE SODIUM 1 TAB TABLET PO SCH (20:49)
[2020-02-13] MEDS: 0.9 % SODIUM CHLORIDE 10 ML SYRINGE IV SCH ×3 (04:30→19:40)
[2020-02-13 07:33] LABS: C-Reactive Protein 0.9 mg/dL (0.03-0.80)
[2020-02-13 07:35] LABS: ALT/SGPT 74 U/L (<40); AST/SGOT 32 U/L (<40); Albumin 3.1 gm/dL (3.2-5.2); Albumin/Globulin Ratio 1.1 (1.0-2.3); Alkaline Phosphatase 54 U/L (39-117); Bilirubin,Direct < 0.2 mg/dL (<0.3); Bilirubin,Total 0.3 mg/dL (0.1-1.0); Blood Urea Nitrogen 15 mg/dL (6-20); Calcium 8.6 mg/dL (8.6-10.4); Carbon Dioxide 29 mmol/L (22-30); Chloride 103 mmol/L (96-108); Globulin 2.8 gm/dL (2.2-3.7); Glomerular Filtration Rate 116; Glucose 80 mg/dL (70-105); Lactate Dehydrogenase 360 U/L (135-225); Phosphorous 3.8 mg/dL (2.5-4.5); Triglycerides 117 mg/dL (<150); Uric Acid 5.3 mg/dL (2.5-8.0)
--- NOTE | 2020-02-13 08:16 | Internal Med Progress Note ---
SUBJECTIVE Subjective Patient information: Note initiated : 02/13/20 at 8:12 am Service Date, if different from initiated Date: [] Patient: Gerry Myers a 44 y/o M admitted on 02/09/20 for shortness of breath, covid positive. Chief Complaint: [] Interval history: History of present illness: Mr. Myers is a 44 year old M with a history of DVT/PE with long-term anticoagulant use/anxiety disorder who presents to the ER with over a week onset of worsening upper respiratory symptoms that started with cough/weakness malaise and fever that has progressed with increasing difficulty breathing along with loss of appetite/generalized body ache and malaise. He presents to the ER with concerns of Covid. Initial work-up was consistent with bilateral pneumonia/severe hypoxic respiratory failure requiring 4 L oxygen in the ER. Patient was started on dexamethasone/remdesivir along with antibiotic coverage. Subsequently hospitalist service was consulted. At the time of my evaluation patient is extremely anxious. Unable to talk in full sentences. Tachycardic at 115/tachypneic at 40. Review of blood gas and chest imaging was consistent with Covid acute viral syndrome and pneumonia pattern. Patient was able to endorse history as above. Denies dysuria, rash, joint swelling or pain 02/09-patient currently on noninvasive mechanical ventilation due to worsening ABGs. pH 7.4 on 10 L oxygen. Overnight continue to deteriorate. On remdesivir/dexamethasone day 2. Maintain COVID-19 questions. White count 8.4/D-dimer 0.52/ferritin 817/CRP 10.2. [place] 2 score 17. Very high risk mortality. Continue ICU care/noninvasive mechanical ventilation. Low threshold for transfer to tertiary center if continues to deteriorate despite aggressive treatment. 02/10-patient clinically improving now on 45% FiO2 noninvasive ventilation. Breathing a lot better. Hemodynamic stabilizing. Tachycardia and tachypnea improved. Interval chest imaging worsening bilateral chest infiltrates. Improved anxiety. Continue remdesivir/dexamethasone. White count 10.8 02/11-patient seen in room. No overnight events. On CPAP at 35% FiO2. Clinical improvement noted. Continue weaning oxygen as tolerated. Continue remdesivir as/dexamethasone. On thrombosis prophylaxis. Good appetite. No overnight concerns per nursing staff. Improving oxygenation/acute lung injury. White count 7.2. LFTs stable, CRP 10.2, pro-Russ 0.14, improving blood gases. 02/12 Doing better today. States his dyspnea is much improved. Has occasional cough. Now on nasal cannula. Inflammatory markers improved. Review of Systems: denies headache/fever/chills/nausea/vomiting/chest or abdominal pain/diarrhea. Otherwise see above. Constitutional Vitals: Vital Signs Temp Pulse Resp BP Pulse Ox 98.6 F 65 26 H 125/81 92 02/13/20 04:00 02/13/20 06:01 02/13/20 06:01 02/13/20 06:01 02/13/20 06:01 Period Temp Pulse Resp BP Sys/Sandoval Pulse Ox Last 24 Hr 97.6 F-99.3 F 59-83 105-137/77-87 92-99 Intake and Output 02/12/20 02/13/20 02/13/20 21:59 05:59 13:59 Intake Total 240 240 Output Total 600 600 Balance -360 -360 Weight 121.79 kg Intake & Output: Intake & Output 02/12/20 02/13/20 02/13/20 21:59 05:59 13:59 Intake Total 240 240 Output Total 600 600 Balance -360 -360 Weight 121.79 kg Intake: Oral 240 240 Output: Void Amount 600 600 Other: Meal Dinner Percent of Meal Consumed 100% Feeding Ability Independent Urine Appearance Clear Clear Urine Color Bright Yellow Dark Yellow Exam: General: Alert, Awake, No acute Distress Eyes/N/T: EOMI, Head/Neck: neck supple, CV: RRR, No murmurs, Pulm: mild rales b/l, no wheezing Abd: soft, nontender, +BS x4 Ext: no clubbing/cyanosis, b/l LE edema mild Neuro: Alert, no focal deficits, moves all extremities, Skin: warm/dry OBJ DATA Labs CBC & Chem 7: 02/12/20 05:38 02/13/20 05:35 Labs: Abnormal Lab Results 02/13/20 02/13/20 02/12/20 05:35 05:35 05:38 RBC Hgb Hct Neut % (Auto) Lymph % (Auto) Lymph # (Auto) Absolute Neutrophils Glucose Calcium 8.5 L GGT 78 H 74 H AST 40 H ALT 74 H 76 H Lactate Dehydrogenase 360 H 380 H C-Reactive Protein 0.90 H Total Protein 5.8 L Albumin 3.1 L 3.1 L Procalcitonin SARS-CoV-2 (PCR) 02/12/20 02/12/20 02/11/20 05:38 05:38 05:22 RBC 4.37 L Hgb 12.7 L Hct 38.3 L Neut % (Auto) Lymph % (Auto) Lymph # (Auto) 1.18 L Absolute Neutrophils Glucose 129 H Calcium GGT 78 H AST 64 H ALT 76 H Lactate Dehydrogenase 454 H C-Reactive Protein Total Protein Albumin 3.1 L Procalcitonin 0.14 H SARS-CoV-2 (PCR) 02/11/20 02/11/20 02/09/20 05:22 05:22 11:18 RBC Hgb 13.4 L Hct Neut % (Auto) 84.3 H Lymph % (Auto) 10.0 L Lymph # (Auto) 1.08 L Absolute Neutrophils 9.07 H Glucose Calcium GGT AST ALT Lactate Dehydrogenase C-Reactive Protein Total Protein Albumin Procalcitonin 0.27 H SARS-CoV-2 (PCR) Detected A Meds: Medications Acetaminophen (Tylenol) 650 mg PO Q4-6HP PRN; Protocol PRN Reason: Per Pain Protocol/Fever > 101 Last Admin: 02/12/20 20:48 Dose: 650 mg Documented by: Bisacodyl (Dulcolax) 10 mg [place] Q2-3DAYS PRN PRN Reason: Constipation Bupropion HCl (Wellbutrin Xl) 300 mg PO DAILY [facility] Last Admin: 02/12/20 09:34 Dose: Not Given Documented by: Dexamethasone (Decadron) 6 mg PO DAILY [facility] Last Admin: 02/12/20 09:30 Dose: 6 mg Documented by: Docusate Sodium (Colace) 100 mg PO BID [facility] Last Admin: 02/12/20 20:49 Dose: Not Given Documented by: Potassium Chloride 40 meq/ (Dextrose) 520 mls @ 130 mls/hr IV UD PRN PRN Reason: K+ = or < 3.5 Acetaminophen (Ofirmev) 650 mg in 65 mls @ 130 mls/hr IV Q6HP PRN; Protocol PRN Reason: Per Pain Protocol/Fever > 101 Magnesium Sulfate (Magnesium Sulfate) 2 gm in 50 mls @ 50 mls/hr IV UD PRN PRN Reason: MG = or < 1.7 Ceftriaxone Sodium 2 gm/ (Dextrose) 50 mls @ 100 mls/hr IV Q24H [facility]; Protocol Last Infusion: 02/12/20 10:00 Dose: Infused Documented by: REMDESIVIR 100 mg/ Sodium (Chloride) 250 mls @ 250 mls/hr IV Q24H [facility] Stop: 02/13/20 11:59 Last Infusion: 02/12/20 11:35 Dose: Infused Documented by: Iron Carb/Multivit/[place]/Folic Acid (Multivitamin W/Minerals) 1 tab PO DAILY [facility] Last Admin: 02/12/20 09:30 Dose: 1 tab Documented by: Lorazepam (Ativan) 0.5 mg PO Q4HP PRN PRN Reason: ANXIETY/SEDATION Last Admin: 02/12/20 20:48 Dose: 0.5 mg Documented by: Melatonin (Melatonin 3mg Tablet) 3 mg PO HSP PRN PRN Reason: Insomnia Last Admin: 02/12/20 20:48 Dose: 3 mg Documented by: Metoprolol Tartrate (Lopressor) 5 mg IV Q5M PRN PRN Reason: Heart Rate > 140 bpm Ondansetron HCl (Zofran Odt) 4 mg SL Q4-6HP PRN; Protocol PRN Reason: Nausea And Vomiting Ondansetron HCl (Zofran) 4 mg IV Q4-6HP PRN; Protocol PRN Reason: Nausea And Vomiting Last Admin: 02/09/20 20:03 Dose: 4 mg Documented by: Polyethylene Glycol (Miralax) 17 gm PO DAILYP PRN PRN Reason: Constipation Potassium Chloride (Klor-Con) 40 meq PO DAILYP PRN PRN Reason: K+ < 3.5 Rivaroxaban (Xarelto) 20 mg PO QPMCC [facility] Last Admin: 02/12/20 17:21 Dose: 20 mg Documented by: Senna/Docusate Sodium (Senna Plus Tablet) 1 tab PO HS [facility] Last Admin: 02/12/20 20:49 Dose: Not Given Documented by: Sodium Chloride (Saline Flush) 10 ml IV Q8 [facility] Last Admin: 02/13/20 04:30 Dose: 10 ml Documented by: Tiotropium [place] (Spiriva) 18 mcg INH DAILY [facility] Last Admin: 02/12/20 09:23 Dose: 1 puff Documented by: A/P Narrative A/P Narrative: A: *COVID-19 PNA: -inflammatory markers improving *Acute lung injury / acute hypoxic respiratory failure: 2/2 above -Improving PaO2/FiO2 ratio -now on 2-3L NC *h/o DVT: on anticoagulation *Anxiety disorder: stable on bupropion/as needed benzodiazepine *Obesity: *mild transaminitis: 2/2 covid viral illness, improving Plan: -Continue wean oxygen as tolerated. -f/u CXR -Continue remdesivir/dexamethasone -empiric abx -IS/Acapella -Continue directed therapies/nutrition support/early mobilization -ppx: home xaralto Full code Time Spent With Patient Time: Total time spent is greater than 50% in coordination of care (as documented) at patient's floor/unit and/or counseling patient:
[2020-02-13] MEDS: TIOTROPIUM BROMIDE 18 MCG INHALANT INH SCH (08:58)
[2020-02-13] MEDS: cefTRIAXone 2 GM in DEXTROSE 5% IN WATER 50 ML IV SCH (08:58)
[2020-02-13] MEDS: DEXAMETHASONE 4 MG TABLET PO SCH (08:59)
[2020-02-13] MEDS: MULTIVIT,THER IRON,CA,FA & MIN 1 TABLET PO SCH (08:59)
[2020-02-13] MEDS: DOCUSATE SODIUM 100 MG CAPSULE PO SCH ×2 (08:59→21:19)
[2020-02-13] MEDS: buPROPion 150 MG TAB.XL.24H PO SCH (08:59)
[2020-02-13] MEDS ORDERED: ALBUMIN HUMAN 12.5 GM/50 ML BAG IV ONE (09:02)
[2020-02-13] MEDS ORDERED: FUROSEMIDE 20 MG/2 ML VIAL IV ONE (09:02)
[2020-02-13] MEDS ORDERED: traMADol 50 MG TABLET PO PRN (09:02)
[2020-02-13] MEDS: REMDESIVIR 100 MG in 0.9 % SODIUM CHLORIDE 250 ML IV SCH (10:38)
[2020-02-13] MEDS: RIVAROXABAN 20 MG TABLET PO SCH (17:10)
[2020-02-13] MEDS: LORazepam 0.5 MG TABLET PO PRN (19:14)
[2020-02-13] MEDS: MELATONIN 3 MG TABLET PO PRN (21:17)
[2020-02-13] MEDS: ACETAMINOPHEN 325 MG TABLET PO PRN (21:18)
[2020-02-13] MEDS: SENNOSIDES/DOCUSATE SODIUM 1 TAB TABLET PO SCH (21:19)
[2020-02-14] MEDS: 0.9 % SODIUM CHLORIDE 10 ML SYRINGE IV SCH ×4 (01:06→21:27)
--- NOTE | 2020-02-14 07:30 | XRay Report ---
INDICATION: covid TECHNIQUE: AP portable upright chest x-ray COMPARISON: Previous chest x-rays dated 02/11/2020, 02/09/2020 FINDINGS: Lungs:Bilateral pulmonary parenchymal infiltrates consistent with covid pneumonia. Infiltrates are slightly worse than on 02/11/2020. No pulmonary parenchymal consolidation. No evidence for congestive heart failure. Heart, vascular:No significant cardiomegaly. Pulmonary vascularity is normal. No pulmonary edema or pulmonary congestion Mediastinum, carrie:No mediastinal widening. No hilar mass Pleura:No pleural fluid. No pleural-based mass or calcification Skeletal:Negative. IMPRESSION: Increasing pulmonary parenchymal infiltrates Interpreted and Authenticated by: Fareed Copeland 02/14/20
--- NOTE | 2020-02-14 07:35 | Internal Med Progress Note ---
SUBJECTIVE Subjective Patient information: Note initiated : 02/14/20 at 7:33 am Service Date, if different from initiated Date: [] Patient: Gerry Myers a 44 y/o M admitted on 02/09/20 for shortness of breath, covid positive. Chief Complaint: [] Interval history: History of present illness: Mr. Myers is a 44 year old M with a history of DVT/PE with long-term anticoagulant use/anxiety disorder who presents to the ER with over a week onset of worsening upper respiratory symptoms that started with cough/weakness malaise and fever that has progressed with increasing difficulty breathing along with loss of appetite/generalized body ache and malaise. He presents to the ER with concerns of Covid. Initial work-up was consistent with bilateral pneumonia/severe hypoxic respiratory failure requiring 4 L oxygen in the ER. Patient was started on dexamethasone/remdesivir along with antibiotic coverage. Subsequently hospitalist service was consulted. At the time of my evaluation patient is extremely anxious. Unable to talk in full sentences. Tachycardic at 115/tachypneic at 40. Review of blood gas and chest imaging was consistent with Covid acute viral syndrome and pneumonia pattern. Patient was able to endorse history as above. Denies dysuria, rash, joint swelling or pain 02/09-patient currently on noninvasive mechanical ventilation due to worsening ABGs. pH 7.4 / on 10 L oxygen. Overnight continue to deteriorate. On remdesivir/dexamethasone day 2. Maintain COVID-19 questions. White count 8.4/D-dimer 0.52/ferritin 817/CRP 10.2. [place] 2 score 17. Very high risk mortality. Continue ICU care/noninvasive mechanical ventilation. Low threshold for transfer to tertiary center if continues to deteriorate despite aggressive treatment. 02/10-patient clinically improving now on 45% FiO2 noninvasive ventilation. Breathing a lot better. Hemodynamic stabilizing. Tachycardia and tachypnea improved. Interval chest imaging worsening bilateral chest infiltrates. Improved anxiety. Continue remdesivir/dexamethasone. White count 10.8 02/11-patient seen in room. No overnight events. On CPAP at 35% FiO2. Clinical improvement noted. Continue weaning oxygen as tolerated. Continue remdesivir as/dexamethasone. On thrombosis prophylaxis. Good appetite. No overnight concerns per nursing staff. Improving oxygenation/acute lung injury. White count 7.2. LFTs stable, CRP 10.2, pro-Russ 0.14, improving blood gases. 02/12 Doing better today. States his dyspnea is much improved. Has occasional cough. Now on nasal cannula. Inflammatory markers improved. 02/13 Slept okay. Has occasional cough mostly nonproductive. Some shortness of breath. He is now on 1 L nasal cannula as of a few minutes ago. Review of Systems: denies headache/fever/chills/nausea/vomiting/chest or abdominal pain/diarrhea. Otherwise see above. Constitutional Vitals: Vital Signs Temp Pulse Resp BP Pulse Ox 98.7 F 64 24 H 124/77 94 02/14/20 04:00 02/14/20 07:33 02/14/20 07:33 02/14/20 06:00 02/14/20 07:33 Period Temp Pulse Resp BP Sys/Sandoval Pulse Ox Last 24 Hr 97.7 F-98.7 F 63-96 21-28 117-144/73-88 88-98 Intake and Output 02/13/20 02/14/20 02/14/20 21:59 05:59 13:59 Intake Total 720 Output Total 875 600 Balance -155 -600 Weight 119.113 kg Intake & Output: Intake & Output 02/13/20 02/14/20 02/14/20 21:59 05:59 13:59 Intake Total 720 Output Total 875 600 Balance -155 -600 Weight 119.113 kg Intake: Oral 720 Output: Void Amount 875 600 Other: Meal Dinner Percent of Meal Consumed 100% Feeding Ability Independent Urine Appearance Clear Clear Urine Color Bright Yellow Dark Yellow Urine Odor Normal Exam: General: Alert, Awake, No acute Distress Eyes/N/T: EOMI, Head/Neck: neck supple, CV: RRR, No murmurs, Pulm: mild rales b/l improving, no wheezing Abd: soft, nontender, +BS x4 Ext: no clubbing/cyanosis, b/l LE edema mild Neuro: Alert, no focal deficits, moves all extremities, Skin: warm/dry OBJ DATA Labs CBC & Chem 7: 02/12/20 05:38 02/14/20 07:01 Labs: Abnormal Lab Results 02/13/20 02/13/20 02/12/20 05:35 05:35 05:38 RBC Hgb Hct Lymph # (Auto) Glucose Calcium 8.5 L GGT 78 H 74 H AST 40 H ALT 74 H 76 H Lactate Dehydrogenase 360 H 380 H C-Reactive Protein 0.90 H Total Protein 5.8 L Albumin 3.1 L 3.1 L Procalcitonin SARS-CoV-2 (PCR) 02/12/20 02/12/20 02/11/20 05:38 05:38 05:22 RBC 4.37 L Hgb 12.7 L Hct 38.3 L Lymph # (Auto) 1.18 L Glucose 129 H Calcium GGT 78 H AST 64 H ALT 76 H Lactate Dehydrogenase 454 H C-Reactive Protein Total Protein Albumin 3.1 L Procalcitonin 0.14 H SARS-CoV-2 (PCR) 02/09/20 11:18 RBC Hgb Hct Lymph # (Auto) Glucose Calcium GGT AST ALT Lactate Dehydrogenase C-Reactive Protein Total Protein Albumin Procalcitonin SARS-CoV-2 (PCR) Detected A Meds: Medications Acetaminophen (Tylenol) 650 mg PO Q4-6HP PRN; Protocol PRN Reason: Per Pain Protocol/Fever > 101 Last Admin: 02/13/20 21:18 Dose: 650 mg Documented by: Bisacodyl (Dulcolax) 10 mg [place] Q2-3DAYS PRN PRN Reason: Constipation Bupropion HCl (Wellbutrin Xl) 300 mg PO DAILY [facility] Last Admin: 02/13/20 08:59 Dose: 300 mg Documented by: Dexamethasone (Decadron) 6 mg PO DAILY [facility] Last Admin: 02/13/20 08:59 Dose: 6 mg Documented by: Docusate Sodium (Colace) 100 mg PO BID [facility] Last Admin: 02/13/20 21:19 Dose: Not Given Documented by: Potassium Chloride 40 meq/ (Dextrose) 520 mls @ 130 mls/hr IV UD PRN PRN Reason: K+ = or < 3.5 Acetaminophen (Ofirmev) 650 mg in 65 mls @ 130 mls/hr IV Q6HP PRN; Protocol PRN Reason: Per Pain Protocol/Fever > 101 Magnesium Sulfate (Magnesium Sulfate) 2 gm in 50 mls @ 50 mls/hr IV UD PRN PRN Reason: MG = or < 1.7 Ceftriaxone Sodium 2 gm/ (Dextrose) 50 mls @ 100 mls/hr IV Q24H [facility]; Protocol Last Infusion: 02/13/20 09:30 Dose: Infused Documented by: Iron Carb/Multivit/[place]/Folic Acid (Multivitamin W/Minerals) 1 tab PO DAILY [facility] Last Admin: 02/13/20 08:59 Dose: 1 tab Documented by: Lorazepam (Ativan) 0.5 mg PO Q4HP PRN PRN Reason: ANXIETY/SEDATION Last Admin: 02/13/20 19:14 Dose: 0.5 mg Documented by: Melatonin (Melatonin 3mg Tablet) 3 mg PO HSP PRN PRN Reason: Insomnia Last Admin: 02/13/20 21:17 Dose: 3 mg Documented by: Metoprolol Tartrate (Lopressor) 5 mg IV Q5M PRN PRN Reason: Heart Rate > 140 bpm Ondansetron HCl (Zofran Odt) 4 mg SL Q4-6HP PRN; Protocol PRN Reason: Nausea And Vomiting Ondansetron HCl (Zofran) 4 mg IV Q4-6HP PRN; Protocol PRN Reason: Nausea And Vomiting Last Admin: 02/09/20 20:03 Dose: 4 mg Documented by: Polyethylene Glycol (Miralax) 17 gm PO DAILYP PRN PRN Reason: Constipation Potassium Chloride (Klor-Con) 40 meq PO DAILYP PRN PRN Reason: K+ < 3.5 Rivaroxaban (Xarelto) 20 mg PO QPMCC [facility] Last Admin: 02/13/20 17:10 Dose: 20 mg Documented by: Senna/Docusate Sodium (Senna Plus Tablet) 1 tab PO HS [facility] Last Admin: 02/13/20 21:19 Dose: Not Given Documented by: Sodium Chloride (Saline Flush) 10 ml IV Q8 [facility] Last Admin: 02/14/20 05:00 Dose: 10 ml Documented by: Tiotropium [place] (Spiriva) 18 mcg INH DAILY [facility] Last Admin: 02/13/20 08:58 Dose: 1 puff Documented by: Tramadol HCl (Ultram) 50 mg PO Q6HP PRN; Protocol PRN Reason: Pain Last Admin: 02/13/20 11:58 Dose: 50 mg Documented by: A/P Narrative A/P Narrative: A: *COVID-19 PNA: -inflammatory markers improving *Acute lung injury / acute hypoxic respiratory failure: 2/2 above -Improving PaO2/FiO2 ratio -now on 1L NC *h/o DVT: on anticoagulation *Anxiety/Depression: stable on bupropion/as needed benzodiazepine *Obesity: *mild transaminitis: 2/2 covid viral illness, improving Plan: -Continue wean oxygen as tolerated -self prone positioning -f/u CXR -Continue remdesivir/dexamethasone -empiric abx -IS/Acapella -Continue directed therapies/nutrition support/early mobilization -ppx: home xaralto Full code Time Spent With Patient Time: Total time spent is greater than 50% in coordination of care (as documented) at patient's floor/unit and/or counseling patient:
[2020-02-14 08:14] LABS: ALT/SGPT 98 U/L (<40); AST/SGOT 41 U/L (<40); Albumin 3.4 gm/dL (3.2-5.2); Albumin/Globulin Ratio 1.2 (1.0-2.3); Alkaline Phosphatase 53 U/L (39-117); Bilirubin,Direct < 0.2 mg/dL (<0.3); Bilirubin,Total 0.5 mg/dL (0.1-1.0); Blood Urea Nitrogen 17 mg/dL (6-20); Calcium 8.7 mg/dL (8.6-10.4); Carbon Dioxide 27 mmol/L (22-30); Chloride 101 mmol/L (96-108); Globulin 2.8 gm/dL (2.2-3.7); Glomerular Filtration Rate 110; Glucose 73 mg/dL (70-105); Lactate Dehydrogenase 356 U/L (135-225); Phosphorous 3.7 mg/dL (2.5-4.5); Triglycerides 117 mg/dL (<150); Uric Acid 5.9 mg/dL (2.5-8.0)
[2020-02-14] MEDS: TIOTROPIUM BROMIDE 18 MCG INHALANT INH SCH (08:20)
[2020-02-14] MEDS: DOCUSATE SODIUM 100 MG CAPSULE PO SCH ×2 (08:20→21:26)
[2020-02-14] MEDS: DEXAMETHASONE 4 MG TABLET PO SCH (08:21)
[2020-02-14] MEDS: MULTIVIT,THER IRON,CA,FA & MIN 1 TABLET PO SCH (08:21)
[2020-02-14] MEDS: buPROPion 150 MG TAB.XL.24H PO SCH (08:21)
[2020-02-14] MEDS: cefTRIAXone 2 GM in DEXTROSE 5% IN WATER 50 ML IV SCH (08:21)
[2020-02-14] MEDS: ACETAMINOPHEN 325 MG TABLET PO PRN (08:28)
--- NOTE | 2020-02-14 09:12 | Discharge Summary ---
Discharge Provider Provider Patient information: Note initiated : 02/14/20 at 9:10 am Service Date, if different from initiated Date: [] Patient: Gerry Myers 44 y/o M admitted on 02/09/20 for shortness of breath, covid positive. Chief Complaint: [] Date of admission: 02/09/20 12:15 Discharge date: 02/15/20 Primary care physician: KEYONNA Barragan Consults: 02/09/20 Consult to Physician [CONS] Stat Comment: Consulting Provider: William Arambula Reason For Exam: Physician to Consult Discharge Meds Discharge Medications Home Medications Xarelto 20 mg PO DAILY 02/09/20 [History Confirmed 02/09/20 Last Taken Unknown] bupropion HCl 300 mg PO DAILY 02/09/20 [History Confirmed 02/09/20 Last Taken Unknown] COURSE Hospital Course Hospital course: History of present illness: Mr. Myers is a 44 year old M with a history of DVT/PE with long-term anticoagulant use/anxiety disorder who presents to the ER with over a week onset of worsening upper respiratory symptoms that started with cough/weakness malaise and fever that has progressed with increasing difficulty breathing along with loss of appetite/generalized body ache and malaise. He presents to the ER with concerns of Covid. Initial work-up was consistent with bilateral pneumonia/severe hypoxic respiratory failure requiring 4 L oxygen in the ER. Patient was started on dexamethasone/remdesivir along with antibiotic coverage. Subsequently hospitalist service was consulted. At the time of my evaluation patient is extremely anxious. Unable to talk in full sentences. Tachycardic at 115/tachypneic at 40. Review of blood gas and chest imaging was consistent with Covid acute viral syndrome and pneumonia pattern. Patient was able to endorse history as above. Denies dysuria, rash, joint swelling or pain 02/09-patient currently on noninvasive mechanical ventilation due to worsening ABGs. pH 7.4 8/35/57 on 10 L oxygen. Overnight continue to deteriorate. On remdesivir/dexamethasone day 2. Maintain COVID-19 questions. White count 8.4/D-dimer 0.52/ferritin 817/CRP 10.2. [place] 2 score 17. Very high risk mortality. Continue ICU care/noninvasive mechanical ventilation. Low threshold for transfer to tertiary center if continues to deteriorate despite aggressive treatment. 02/10-patient clinically improving now on 45% FiO2 noninvasive ventilation. Breathing a lot better. Hemodynamic stabilizing. Tachycardia and tachypnea improved. Interval chest imaging worsening bilateral chest infiltrates. Improved anxiety. Continue remdesivir/dexamethasone. White count 10.8 02/11-patient seen in room. No overnight events. On CPAP at 35% FiO2. Clinical improvement noted. Continue weaning oxygen as tolerated. Continue remdesivir as/dexamethasone. On thrombosis prophylaxis. Good appetite. No overnight concerns per nursing staff. Improving oxygenation/acute lung injury. White count 7.2. LFTs stable, CRP 10.2, pro-Russ 0.14, improving blood gases. 02/12 Doing better today. States his dyspnea is much improved. Has occasional cough. Now on nasal cannula. Inflammatory markers improved. 02/13 Slept okay. Has occasional cough mostly nonproductive. Some shortness of breath. He is now on 1 L nasal cannula as of a few minutes ago. 02/14 Continues to improve. Is on room air. Stable for discharge. A: *COVID-19 PNA: *Acute lung injury / acute hypoxic respiratory failure: 2/2 above *h/o DVT: on anticoagulation *Anxiety/Depression: stable on bupropion/as needed benzodiazepine *Obesity: *mild transaminitis: 2/2 covid viral illness, improving Discharge diagnosis: Covid pneumonia acute hypoxic respiratory failure transaminitis Secondary discharge diagnosis: Obesity anxiety depression history of DVT Time Spent with Patient Time attestation: Total time spent providing and/or coordinating discharge services: Time spent: Greater than 30 minutes EXAM Constitutional Vitals: Temp Pulse Resp BP Pulse Ox 98.5 F 79 24 H 127/91 92 02/14/20 08:00 02/14/20 08:00 02/14/20 08:30 02/14/20 08:00 02/14/20 08:30 Discharge Data Data Completed and Pending Labs on day of discharge: Labs from last 24 hours 02/14/20 07:01 Sodium 138 Potassium 3.7 Chloride 101 Carbon Dioxide 27 Anion Gap 10.0 BUN 17 Creatinine 0.8 GFR Calculation 110 Glucose 73 Uric Acid 5.9 Calcium 8.7 Phosphorus 3.7 Magnesium 2.2 Total Bilirubin 0.5 Direct Bilirubin < 0.2 GGT 82 H AST 41 H ALT 98 H Alkaline Phosphatase 53 Lactate Dehydrogenase 356 H Total Protein 6.2 Albumin 3.4 Globulin 2.8 Albumin/Globulin Ratio 1.2 Triglycerides 117 Discharge Plan Patient/Caregiver Discharge Instructions Activity: increase activity as tolerated Diet: Regular Diet Prescriptions: Continued bupropion HCl 300 mg tablet extended release 24 hr 300 mg PO DAILY RF: 0 Xarelto 20 mg tablet 20 mg PO DAILY RF: 0 Follow Up Plan Follow up with: Mary Grace Casanova ARNP [Primary Care Provider] - Patient Disposition: Home, Self-Care Prognosis: Fair Discharge Orders: Discharge Order (Routine); Ordered 02/15/20 Ordered By: Ricky Salazar
[2020-02-14] MEDS ORDERED: traMADol 50 MG TABLET PO PRN (09:14)
[2020-02-14] MEDS ORDERED: POTASSIUM CHLORIDE 40 MEQ in DEXTROSE 5% IN WATER 500 ML IV PRN (09:14)
[2020-02-14] MEDS ORDERED: ONDANSETRON 4 MG ODT TABLET SL PRN (09:14)
[2020-02-14] MEDS ORDERED: BISACODYL 10 MG SUPP.RECT PR PRN (09:14)
[2020-02-14] MEDS ORDERED: ONDANSETRON 4 MG/2 ML VIAL IV PRN (09:14)
[2020-02-14] MEDS ORDERED: POTASSIUM CHLORIDE 20 MEQ PACKET PO PRN (09:14)
[2020-02-14] MEDS ORDERED: LORazepam 0.5 MG TABLET PO PRN (09:14)
[2020-02-14] MEDS ORDERED: POLYETHYLENE GLYCOL 3350 17 GM PACKET PO PRN (09:14)
[2020-02-14] MEDS ORDERED: MAGNESIUM SULFATE 2 GM/50 ML BAG IV PRN (09:14)
[2020-02-14] MEDS ORDERED: ACETAMINOPHEN 325 MG TABLET PO PRN (09:14)
[2020-02-14] MEDS ORDERED: METOPROLOL TARTRATE 5 MG/5 ML VIAL IV PRN (09:14)
[2020-02-14] MEDS ORDERED: ACETAMINOPHEN 650 MG/65 ML BOTTLE IV PRN (09:14)
[2020-02-14] MEDS ORDERED: RIVAROXABAN 20 MG TABLET PO SCH (17:30)
[2020-02-14] MEDS ORDERED: SENNOSIDES/DOCUSATE SODIUM 1 TAB TABLET PO SCH (21:00)
[2020-02-14] MEDS ORDERED: MELATONIN 3 MG TABLET PO PRN (21:00)
[2020-02-15] MEDS: 0.9 % SODIUM CHLORIDE 10 ML SYRINGE IV SCH (04:12)
[2020-02-15] MEDS: DOCUSATE SODIUM 100 MG CAPSULE PO SCH (08:31)
[2020-02-15] MEDS: TIOTROPIUM BROMIDE 18 MCG INHALANT INH SCH ×2 (08:31→10:28)
[2020-02-15] MEDS ORDERED: DEXAMETHASONE 4 MG TABLET PO SCH (09:00)
[2020-02-15] MEDS ORDERED: buPROPion 150 MG TAB.XL.24H PO SCH (09:00)
[2020-02-15] MEDS ORDERED: MULTIVIT,THER IRON,CA,FA & MIN 1 TABLET PO SCH (09:00)
[2020-02-15] MEDS ORDERED: cefTRIAXone 2 GM in DEXTROSE 5% IN WATER 50 ML IV SCH (09:00)
--- NOTE | 2020-02-15 10:27 | Discharge Summary ---
Discharge Provider Provider Patient information: Note initiated : 02/15/20 at 10:26 am Service Date, if different from initiated Date: [] Patient: Gerry Myers 44 y/o M admitted on 02/09/20 for shortness of breath, covid positive. Chief Complaint: [] Date of admission: 02/09/20 12:15 Primary care physician: KEYONNA Barragan Consults: 02/09/20 Consult to Physician [CONS] Stat Comment: Consulting Provider: William Arambula Reason For Exam: Physician to Consult Discharge Meds Discharge Medications Home Medications Xarelto 20 mg PO DAILY 02/09/20 [History Confirmed 02/09/20 Last Taken Unknown] bupropion HCl 300 mg PO DAILY 02/09/20 [History Confirmed 02/09/20 Last Taken Unknown] ipratropium-albuterol [Combivent Respimat] 1 puff INHALATION Q6H PRN #4 g 02/15/20 [Rx Last Taken Unknown] COURSE Time Spent with Patient Time attestation: Total time spent providing and/or coordinating discharge services: EXAM Constitutional Vitals: Temp Pulse Resp BP Pulse Ox 96.7 F L 83 22 112/78 91 02/15/20 08:34 02/15/20 08:34 02/15/20 08:34 02/15/20 08:34 02/15/20 08:34 Discharge Plan Patient/Caregiver Discharge Instructions Activity: increase activity as tolerated Diet: Regular Diet Instructions: COVID-19 Activity Restrictions/Additional Instructions: Resume home diet as tolerated. Take all meals up in chair sitting at 90 degrees. Increase activity as tolerated. Follow-up with KEYONNA Barragan on 02/22 at 11:00 am. You will have a virtual meeting with her through the Health Portal. If you need assistance setting this up, contact the office at [phone] Return to ER if worsening fever, chills, nausea and/or vomiting, chest pain, shortness of breath, diarrhea, unable to go to the bathroom, bleeding, return of symptoms, or other acute symptom. This discharge packet is provided to you to help keep you informed about your care. We want to ensure you get everything you need when you go home. You will also be receiving a call from us in a few days to follow up with you and see how you are doing since your discharge. This gives us a chance to listen to any concerns you maybe experiencing since you were discharged or any additional needs you may have, as well as providing us feedback on your care experience. We strive to always provide excellent care and thank you for your feedback and for choosing [facility]. Prescriptions: New Combivent Respimat 20-100 mcg/actuation mist 1 puff INHALATION Q6H PRN (Reason: dyspnea) Qty: 4 RF: 0 Continued bupropion HCl 300 mg tablet extended release 24 hr 300 mg PO DAILY RF: 0 Xarelto 20 mg tablet 20 mg PO DAILY RF: 0 Follow Up Plan Follow up with: Mary Grace Casanova ARNP [Primary Care Provider] - 02/23/20 11:00 am Patient Disposition: Home, Self-Care Prognosis: Fair Discharge Orders: Discharge Order (Routine); Ordered 02/15/20 Ordered By: Ricky Salazar
== END 2020-02-15 11:48 | disposition home or self-care (01) | DRG 177 ==
LOC: ED 08:50 → ICU 12:15 → MEDSUR 02-14 11:59
PROVIDERS: ADMIT Internal Medicine; ATTEND Internal Medicine